=== PATIENT | male | born 1930 | race Caucasian/White ===

== ENCOUNTER 2017-04-07 11:49 | Inpatient (IN) | payer MEDICARE, BC ==
[~2017-04-07] VITALS: Ht 175.3 cm; Wt 88.2 kg
[~2017-04-07 11:49] MED LIST: 00186-0370-20 IH; ASPIRIN 32325 MG/TA1 PO; ASPIRIN 81M81 MG/TA2 PO; CARAFATE 1GM1 G PO; CORDARONE200 MG/TAB PO; ELIQUIS 2.5 PO; FLOMAX 0.40.4 MG/CAP PO; K-DUR 10 MEQ T10 MEQ PO; KLOR-CON M2020 MEQ PO; LASIX 40MG TABL40 MG PO; LEVAQUIN 5500 MG/TA1 PO; LEVAQUIN 750MG750 M1 PO; LOPID 600M600 MG/TAB PO; LOPRESSOR 225 MG/TAB PO; MONOPRIL40 MG PO; NORCO 325 MG-7.1 TAB PO; NORVASC 10MG10 MG PO; PRILOSEC 20MG20 MG PO; PRINIVIL10 MG PO; REQUIP0.25 MG PO; REQUIP5 MG PO; TYLENOL 500MG500 MG PO; WELLBUTRIN 100100 MG PO; ZYLOPRIM 300MG300 MG PO
[2017-04-07 12:25] LABS: HEMATOCRIT 40.3 % (42.0-52.0); HEMOGLOBIN 12.9 g/dl (13.5-18.0); MEAN CELL VOLUME 103 fl (80.0-100.0); MEAN CORPUSCULAR HEMOGLOBIN 33 pg (27.0-31.0); MEAN CORPUSCULAR HGB CONC 32 g/dl (33.0-37.0); MEAN PLATELET VOLUME 12.5 fl (7.4-10.4); PLATELET COUNT 136 K/mm3 (130-400); RED BLOOD COUNT 3.91 M/mm3 (4.20-5.60)
[2017-04-07 12:30] LABS: INR 1.3 (0.8-3.0); PROTHROMBIN TIME 14.8 SECONDS (9.7-12.8)
[2017-04-07 12:43] LABS: ADJUSTED CALCIUM 9.1 mg/dL (8.4-10.2); ALBUMIN 4.4 gm/dL (3.5-5.0); BILIRUBIN,TOTAL 0.8 mg/dL (0.0-1.0); CALCIUM 9.4 mg/dL (8.4-10.2); CREATININE, serum 2.03 mg/dL (0.66-1.25)
[2017-04-07 13:02] VITALS: BP 114/77; PULSE 70; TEMP 98.1
[2017-04-07 14:55] VITALS: BP 114/77; PULSE 70
[2017-04-07 19:21] VITALS: BP 110/54; PULSE 69; TEMP 98.2
[2017-04-07 23:34] VITALS: BP 114/68; PULSE 100; TEMP 97.6
[2017-04-08] VITALS (10 sets, daily range): BP systolic 94–130; BP diastolic 47–70; PULSE 67–89; TEMP 97.5–98
[2017-04-08 07:34] LABS: HEMATOCRIT 38.4 % (42.0-52.0); HEMOGLOBIN 12.2 g/dl (13.5-18.0); MEAN CELL VOLUME 104 fl (80.0-100.0); MEAN CORPUSCULAR HEMOGLOBIN 33 pg (27.0-31.0); MEAN CORPUSCULAR HGB CONC 32 g/dl (33.0-37.0); MEAN PLATELET VOLUME 12.9 fl (7.4-10.4); PLATELET COUNT 128 K/mm3 (130-400); RED BLOOD COUNT 3.71 M/mm3 (4.20-5.60); WHITE BLOOD COUNT 10.4 K/mm3 (4.8-10.8)
[2017-04-08 07:48] LABS: CALCIUM 9.3 mg/dL (8.4-10.2); CREATININE, serum 2.06 mg/dL (0.66-1.25); POTASSIUM 3.4 mmol/L (3.4-5.0)
[2017-04-09] VITALS (7 sets, daily range): BP systolic 100–119; BP diastolic 52–68; PULSE 68–73; TEMP 97.4–98.4
[2017-04-09 12:48] LABS: MAGNESIUM 2.2 mg/dL (1.6-2.3); PHOSPHOROUS 3.3 mg/dL (2.5-4.5)
[2017-04-09 12:49] LABS: CALCIUM 9.5 mg/dL (8.4-10.2); POTASSIUM 3.5 mmol/L (3.4-5.0)
[2017-04-10 04:34] VITALS: BP 112/63; PULSE 72; TEMP 98.4
[2017-04-10 08:00] VITALS: BP 120/72; PULSE 82; TEMP 98.6
[2017-04-10 12:26] VITALS: BP 110/60; PULSE 69; TEMP 97.4
[2017-04-10 16:22] VITALS: BP 124/61; PULSE 70; TEMP 97.4
[2017-04-10 17:19] LABS: CALCIUM 9.4 mg/dL (8.4-10.2); CREATININE, serum 2.13 mg/dL (0.66-1.25); MAGNESIUM 2.1 mg/dL (1.6-2.3); PHOSPHOROUS 3.8 mg/dL (2.5-4.5)
[2017-04-10 20:16] VITALS: BP 118/53; PULSE 71; TEMP 98.6
[2017-04-11] VITALS (7 sets, daily range): BP systolic 94–123; BP diastolic 49–70; PULSE 66–77; TEMP 97.1–98.2
[2017-04-11 06:15] LABS: MEAN CELL VOLUME 101 fl (80.0-100.0); MEAN CORPUSCULAR HGB CONC 32 g/dl (33.0-37.0); MEAN PLATELET VOLUME 12.8 fl (7.4-10.4); PLATELET COUNT 114 K/mm3 (130-400); RED BLOOD COUNT 3.64 M/mm3 (4.20-5.60); WHITE BLOOD COUNT 11.7 K/mm3 (4.8-10.8)
[2017-04-11 06:19] LABS: ADD PATHOLOGY DIFF REVIEW NO; HEMATOCRIT 36.9 % (42.0-52.0); HEMOGLOBIN 11.9 g/dl (13.5-18.0); MEAN CORPUSCULAR HEMOGLOBIN 33 pg (27.0-31.0)
[2017-04-11 06:31] LABS: CALCIUM 9.5 mg/dL (8.4-10.2); CREATININE, serum 2.31 mg/dL (0.66-1.25); MAGNESIUM 2.2 mg/dL (1.6-2.3); PHOSPHOROUS 4.4 mg/dL (2.5-4.5); POTASSIUM 3.6 mmol/L (3.4-5.0)
[2017-04-11 07:12] LABS: BAND 4 % (0-10); LYMPHOCYTE 46 % (20.0-51.0); NEUTROPHILS 49 % (42.0-75.2); PLATELET ESTIMATE DECREASED (NORMAL); TEAR DROP CELLS 1+; TOTAL CELLS COUNTED 100
[2017-04-11 16:35] LABS: COLLECTION METHOD CLEAN CATCH
[2017-04-11 16:48] LABS: MUCOUS Present /lpf; PH 6 (5-8); SQUAMOUS EPITHELIAL None Seen /hpf; URINE APPEARANCE Clear; URINE BACTERIA None Seen /hpf; URINE BILIRUBIN Negative (NEGATIVE); URINE BLOOD 2+ (NEGATIVE); URINE COLOR Yellow; URINE GLUCOSE Negative (NEGATIVE); URINE KETONE Negative (NEGATIVE); URINE LEUKOCYTE ESTERASE 1+ (NEGATIVE); URINE PROTEIN(semi-quant) Negative (NEGATIVE); URINE UROBILINOGEN Negative (NEGATIVE)
[2017-04-11 16:49] LABS: URINE WBC 20-50 /hpf
[2017-04-12] VITALS (641 sets, daily range): BP systolic 101–135; BP diastolic 59–87; PULSE 64–72; TEMP 97–98.7; O2SAT 84–100
[2017-04-12 06:37] LABS: BASO % 0.5 % (0.0-2.0); EOS # 0.2 (0.0-0.7); EOS % 2.3 % (0-4.0); GRAN # 2.4 (1.4-6.5); GRAN % 28.4 % (42.2-75.2); HEMATOCRIT 38.7 % (42.0-52.0); HEMOGLOBIN 12.4 g/dl (13.5-18.0); MEAN CELL VOLUME 103 fl (80.0-100.0); MEAN CORPUSCULAR HEMOGLOBIN 33 pg (27.0-31.0); MEAN CORPUSCULAR HGB CONC 32 g/dl (33.0-37.0); MEAN PLATELET VOLUME 12.9 fl (7.4-10.4); MONO # 0.7 (0.1-0.6); MONO % 8.3 % (1.7-9.3); PLATELET COUNT 120 K/mm3 (130-400); RED BLOOD COUNT 3.76 M/mm3 (4.20-5.60); WHITE BLOOD COUNT 8.3 K/mm3 (4.8-10.8)
[2017-04-12 06:43] LABS: INR 1.1 (0.8-3.0); PROTHROMBIN TIME 12.8 SECONDS (9.7-12.8)
[2017-04-12 06:45] LABS: PARTIAL THROMBOPLASTIN TIME 29.3 SECONDS (26.0-37.0)
[2017-04-12 06:57] LABS: CALCIUM 9.6 mg/dL (8.4-10.2); CREATININE, serum 2.26 mg/dL (0.66-1.25); MAGNESIUM 2.3 mg/dL (1.6-2.3); POTASSIUM 3.8 mmol/L (3.4-5.0)
[2017-04-13] VITALS (781 sets, daily range): BP systolic 111–124; BP diastolic 66–75; PULSE 69–73; TEMP 97.4–98; O2SAT 82–100
[2017-04-13 05:55] LABS: MEAN CELL VOLUME 102 fl (80.0-100.0); MEAN CORPUSCULAR HGB CONC 32 g/dl (33.0-37.0); MEAN PLATELET VOLUME 13.1 fl (7.4-10.4); PLATELET COUNT 130 K/mm3 (130-400); RED BLOOD COUNT 3.56 M/mm3 (4.20-5.60); WHITE BLOOD COUNT 7.8 K/mm3 (4.8-10.8)
[2017-04-13 05:58] LABS: HEMATOCRIT 36.3 % (42.0-52.0); HEMOGLOBIN 11.7 g/dl (13.5-18.0); MEAN CORPUSCULAR HEMOGLOBIN 33 pg (27.0-31.0)
[2017-04-13 06:09] LABS: CALCIUM 9.3 mg/dL (8.4-10.2); CREATININE, serum 1.99 mg/dL (0.66-1.25); POTASSIUM 3.9 mmol/L (3.4-5.0)
[2017-04-13] MEDS ORDERED: BRILINTA90 MG PO (13:23)
[2017-04-13] MEDS ORDERED: COREG12.5 MG PO (13:24)
[2017-04-13] MEDS ORDERED: K-DUR20 MEQ PO (13:25)
[2017-04-13] MEDS ORDERED: DEMADEX 20MG20 M1 PO (13:27)
[2017-04-13] MEDS ORDERED: ASPIRIN 81M81 MG/TA2 PO (13:27)
[2017-04-13] MEDS ORDERED: PRILOSEC 20MG20 MG PO (13:30)
== END 2017-04-13 15:00 | disposition home or self-care (01) | DRG 248 ==
LOC: PEDS 11:49 → IMCU 11:49 → MEDICAL 11:49 → PEDS 15:13 → MEDICAL 04-08 15:19 → ICU 04-12 12:44
PROVIDERS: Internal Medicine; Internal Medicine Cardiovascular Disease; Physician Assistant
PROC: 02703DZ Dilation of Coronary Artery, One Artery with Intraluminal Device, Percutaneous Approach (ICD-10-PCS; principal; 2017-04-12)
PROC: B2111ZZ Fluoroscopy of Multiple Coronary Arteries using Low Osmolar Contrast (ICD-10-PCS; 2017-04-12)
DX: I13.0 Hypertensive heart and chronic kidney disease with heart failure and stage 1 through stage 4 chronic kidney disease, or unspecified chronic kidney disease (principal); I50.23 Acute on chronic systolic (congestive) heart failure; N18.9 Chronic kidney disease, unspecified; E11.22 Type 2 diabetes mellitus with diabetic chronic kidney disease; J44.9 Chronic obstructive pulmonary disease, unspecified; I48.0 Paroxysmal atrial fibrillation; Z95.0 Presence of cardiac pacemaker; E87.6 Hypokalemia; I25.10 Atherosclerotic heart disease of native coronary artery without angina pectoris; Z79.01 Long term (current) use of anticoagulants; Z87.891 Personal history of nicotine dependence
CPT/HCPCS: 99232-AI; A9502; C1725; C1760; C1769; C1876; C1887; C1894; G0378; G0379; J0583; J1940; J2250; J2785; J3010; J7060; Q9967

== ENCOUNTER 2017-12-15 09:38 | Day surgery (SDC) | payer MEDICARE, BC ==
[~2017-12-15] VITALS: Ht 175.3 cm; Wt 103.6 kg
[2017-12-15] VITALS (11 sets, daily range): BP systolic 123–173; BP diastolic 60–80; PULSE 56–63; TEMP 97–98
[~2017-12-15 09:38] MED LIST changes: +BRILINTA90 MG PO; +CLEOCIN HCL300 MG PO; +COREG12.5 MG PO; +DEMADEX 20MG20 M1 PO; +K-DUR20 MEQ PO
[2017-12-15 10:50] LABS: HEMATOCRIT 36.9 % (42.0-52.0); HEMOGLOBIN 11.5 g/dl (13.5-18.0); MEAN CELL VOLUME 105 fl (80.0-100.0); MEAN CORPUSCULAR HEMOGLOBIN 33 pg (27.0-31.0); MEAN CORPUSCULAR HGB CONC 31 g/dl (33.0-37.0); MEAN PLATELET VOLUME 12.1 fl (7.4-10.4); PLATELET COUNT 105 K/mm3 (130-400); RED BLOOD COUNT 3.51 M/mm3 (4.20-5.60); REDCELL DISTRIBUTION WIDTH-CV 16.8 % (11.5-14.5)
[2017-12-15 10:57] LABS: ALBUMIN 4.1 gm/dL (3.5-5.0); BILIRUBIN,TOTAL 0.8 mg/dL (0.0-1.0); CALCIUM 9.2 mg/dL (8.4-10.2); CREATININE, serum 1.66 mg/dL (0.66-1.25); POTASSIUM 4.1 mmol/L (3.4-5.0); TOTAL PROTEIN 6.8 gm/dL (6.4-8.2)
[2017-12-15] MEDS ORDERED: FOLIC ACID 11 MG/TA1 PO (11:21)
[2017-12-16 03:07] VITALS: BP 106/82; PULSE 60; TEMP 98
[2017-12-16 07:14] LABS: MEAN CELL VOLUME 105 fl (80.0-100.0); MEAN CORPUSCULAR HEMOGLOBIN 33 pg (27.0-31.0); MEAN CORPUSCULAR HGB CONC 32 g/dl (33.0-37.0); MEAN PLATELET VOLUME 12.8 fl (7.4-10.4); PLATELET COUNT 110 K/mm3 (130-400); RED BLOOD COUNT 3.32 M/mm3 (4.20-5.60); REDCELL DISTRIBUTION WIDTH-CV 16.5 % (11.5-14.5)
[2017-12-16 07:16] LABS: HEMATOCRIT 34.7 % (42.0-52.0)
[2017-12-16 07:26] LABS: ALBUMIN 3.7 gm/dL (3.5-5.0); CALCIUM 8.8 mg/dL (8.4-10.2); CREATININE, serum 1.68 mg/dL (0.66-1.25); POTASSIUM 4.2 mmol/L (3.4-5.0)
[2017-12-16 07:41] LABS: BAND 14 % (0-10); LYMPHOCYTE 18 % (20.0-51.0); NEUTROPHILS 65 % (42.0-75.2)
[2017-12-16 07:42] LABS: PLATELET ESTIMATE DECREASED (NORMAL)
[2017-12-16 07:44] LABS: HYPOCHROMIA 2+
[2017-12-16 08:12] VITALS: BP 130/64; PULSE 63; TEMP 97.9
[2017-12-16] MEDS ORDERED: COLACE 100100 MG/CAP PO (11:32)
[2017-12-16] MEDS ORDERED: NORCO 325 MG-7.1 TAB PO (11:32)
[2017-12-16 13:29] VITALS: BP 128/62; PULSE 67; TEMP 98.1
== END 2017-12-16 14:28 | disposition home or self-care (01) ==
LOC: SDCO 09:38 → SURG 16:05 → SDCO 12-16 14:28
PROVIDERS: Surgery
DX: K40.90 Unilateral inguinal hernia, without obstruction or gangrene, not specified as recurrent (principal); K21.9 Gastro-esophageal reflux disease without esophagitis; E78.00 Pure hypercholesterolemia, unspecified; G25.81 Restless legs syndrome; I11.0 Hypertensive heart disease with heart failure; I50.9 Heart failure, unspecified; I48.91 Unspecified atrial fibrillation; F17.220 Nicotine dependence, chewing tobacco, uncomplicated; I25.10 Atherosclerotic heart disease of native coronary artery without angina pectoris; N40.1 Benign prostatic hyperplasia with lower urinary tract symptoms; N39.498 Other specified urinary incontinence; R39.15 Urgency of urination; M10.072 Idiopathic gout, left ankle and foot; M10.071 Idiopathic gout, right ankle and foot; D64.9 Anemia, unspecified; Z88.5 Allergy status to narcotic agent; Z88.1 Allergy status to other antibiotic agents; Z88.0 Allergy status to penicillin; Z88.6 Allergy status to analgesic agent; Z88.8 Allergy status to other drugs, medicaments and biological substances; Z79.82 Long term (current) use of aspirin; Z79.01 Long term (current) use of anticoagulants; Z95.810 Presence of automatic (implantable) cardiac defibrillator; Z96.652 Presence of left artificial knee joint; Z82.49 Family history of ischemic heart disease and other diseases of the circulatory system; Z83.3 Family history of diabetes mellitus; Z90.49 Acquired absence of other specified parts of digestive tract
CPT/HCPCS: OP; C1781; J0690; J1100; J2250; J2405; J2704; J2795; J3010; J7120